=== PATIENT | male | born 1995 | race Two or more races ===

== ENCOUNTER 2016-11-21 06:55 | Day surgery (SDC) | payer OTHER ==
[2016-11-16 11:41] LABS: ABSOLUTE EOSINOPHILS # (AUTO) 0.1 10^3/uL (0.0-0.6); ABSOLUTE LYMPHOCYTES (AUTO) 1.8 10^3/uL (0.5-4.7); ABSOLUTE MONOCYTES (AUTO) 0.5 10^3/uL (0.1-1.4); ABSOLUTE NEUT (AUTO) 3.5 10^3/uL (1.7-8.2); BASOPHILS % (AUTO) 0.6 % (0-2); EOSINOPHILS % (AUTO) 2.2 % (0-6); HEMATOCRIT 46.7 % (37.9-51.0); HEMOGLOBIN 16.1 g/dL (13.5-17.0); HGB HCT DIFFERENCE 1.6; LYMPHOCYTES % (AUTO) 29.9 % (13-45); MEAN CORPUSCULAR HEMOGLOBIN 29.9 pg (27.0-33.4); MEAN CORPUSCULAR HGB CONC 34.5 g/dL (32.0-36.0); MEAN CORPUSCULAR VOLUME 87 fl (80-97); MONOCYTES % (AUTO) 8.7 % (3-13); RED BLOOD COUNT 5.38 10^6/uL (4.35-5.55); SEGMENTED NEUTROPHILS % (AUTO) 58.6 % (42-78)
[2016-11-16 11:47] LABS: APPEARANCE,URINE CLEAR; BILIRUBIN,URINE NEGATIVE (NEGATIVE); GLUCOSE, URINE NEGATIVE (NEGATIVE); KETONES,URINE NEGATIVE (NEGATIVE); LEUKOCYTE ESTERASE,URINE NEGATIVE (NEGATIVE); NITRITE,URINE NEGATIVE (NEGATIVE); PROTEIN,URINE NEGATIVE (NEGATIVE); URINE SPECIFIC GRAVITY 1.018; UROBILINOGEN,URINE NEGATIVE mg/dL (<2.0)
[2016-11-16 12:05] LABS: ANION GAP 9 (5-19); BLOOD UREA NITROGEN 14 mg/dL (7-20); CALCIUM 9.9 mg/dL (8.4-10.2); CARBON DIOXIDE 29 mmol/L (22-30); CHLORIDE 105 mmol/L (98-107); CREATININE RESULT 1.06 mg/dL (0.52-1.25); GLUCOSE 91 mg/dL (75-110); SODIUM 143.3 mmol/L (137-145)
--- NOTE | 2016-11-16 18:12 | EKG REPORT ---
SEVERITY:- BORDERLINE ECG - SINUS BRADYCARDIA INFERIOR Q WAVES, PROBABLY NORMAL VARIATION ANTERIOR ST ELEVATION, PROBABLY DUE TO LVH : Confirmed by: Kevin Lua MD 16-Nov-2016 18:11:50
[~2016-11-21 06:55] MED LIST: CEFAZOLIN 2 GM/D5W RTU 2 GM/50 ML RTUPB IV PRN; LACTATED RINGERS 1000 ML IV PRN; LIDOCAINE 0.5% INJ-PF (5 MG/ML) 50 ML SDV SUBCUT PRN
[2016-11-21] MEDS ORDERED: BUPIVACAINE HCL 0.5%-EPI 1:200000 INJ/PF 30 ML VIAL ONE (07:18)
[2016-11-21] MEDS ORDERED: EPHEDRINE SULFATE INJ 50 MG/1 ML AMPULE ONE (08:26)
[2016-11-21] MEDS ORDERED: FENTANYL CITRATE INJ/PF 250 MCG/5 ML AMPULE ONE (08:26)
[2016-11-21] MEDS ORDERED: PROPOFOL INJ 200 MG/20 ML VIAL IV ONE (08:26)
[2016-11-21] MEDS ORDERED: MIDAZOLAM 2 MG/2 ML INJ ONE (08:26)
[2016-11-21] MEDS ORDERED: HYDROMORPHONE HCL INJ/PF 2 MG/ML AMPULE ONE (08:26)
[2016-11-21] MEDS ORDERED: MEPERIDINE HCL/PF INJ 25 MG/1 ML DISP.SYRIN IV PRN (09:15)
[2016-11-21] MEDS ORDERED: FENTANYL CITRATE INJ/PF 100 MCG/2 ML AMPUL IV PRN ×3 (09:15)
[2016-11-21] MEDS ORDERED: DIPHENHYDRAMINE HCL 50 MG/ML VIAL IV PRN (09:15)
[2016-11-21] MEDS ORDERED: PROMETHAZINE HCL INJ 25 MG/1 ML VIAL IV PRN (09:15)
--- NOTE | 2016-11-21 10:28 | Operative Report ---
Operative Report DATE OF SURGERY: 11/21/16 PREOPERATIVE DIAGNOSIS: Retained intramedullary hardware status post ORIF of right femur fracture OPERATION: Hardware removal 3 SURGEON: ROXANNE MCCALLUM TISSUE REMOVED OR ALTERED: Hardware to pathology ESTIMATED BLOOD LOSS: 100 PROCEDURE: The patient in a left lateral position on a jackknife operating table the right lower extremity is prepped and draped in a sterile fashion. A stab wound is made over the previous distal interlock and this is easily removed. Subsequent per cane. His pin is placed through the soft tissue into the proximal end of the nail without any difficulty.. Attention is now turned to the proximal interlock. A lateral incision is made and blunt previous surgical approach. There is of reamers had to be used open the lateral cortex. Subsequently under some difficulty the proximal interlock is removed. Through the most proximal incision. Great difficulty is experienced in terms of engaging the threads on the proximal interlock extractor. Using a vice president of instruction and and vice extracorporeal circulation specialist. The nail was then removed. This point all 3 wounds irrigated with bulb lavage. The wounds closures interrupted Vicryl followed by sania. Sterile dressings were applied and the patient's returned to the PACU.
[2016-11-21] MEDS: FENTANYL CITRATE INJ/PF 100 MCG/2 ML AMPUL ONE ×2 (10:45→10:50)
[2016-11-21] MEDS ORDERED: OXYCODONE HCL IR 5 MG TABLET ONE (11:43)
[2016-11-21] MEDS ORDERED: OXYCODONE HCL IR 5 MG TABLET PO PRN (12:00)
[2016-11-21] MEDS ORDERED: ONDANSETRON HCL INJ/PF 4 MG/2 ML SDV IV PRN (12:00)
[2016-11-21 13:01] VITALS: BP 126/75
[2016-11-21] MEDS ORDERED: SUCCINYLCHOLINE CHLORIDE INJ 200 MG/10 ML VIAL ONE (13:15)
[2016-11-21] MEDS ORDERED: ONDANSETRON HCL INJ/PF 4 MG/2 ML SDV ONE (13:15)
[2016-11-21] MEDS ORDERED: LIDOCAINE 2% INJ-PF (20 MG/ML) 10 ML AMPUL ONE (13:15)
== END 2016-11-21 12:40 | disposition home or self-care (01) ==
LOC: OROUT 06:55
PROVIDERS: ATTEND Orthopaedic Surgery
PROC: 0QP804Z Removal of Internal Fixation Device from Right Femoral Shaft, Open Approach (ICD-10-PCS; principal; 2016-11-21 08:45)
DX: S72.321 Displaced transverse fracture of shaft of right femur (principal); X58.XXXS Exposure to other specified factors, sequela; M25.561 Pain in right knee; Z79.899 Other long term (current) drug therapy
CPT/HCPCS: 93005; 36415; 85025; 80048; 81001; 71020; 73502; 93010; 20680; J2250; J3490 ×3; J3010 ×2; J1170; J0330; J2405; J2704; J0690; 01360